=== PATIENT | male | born 1950 | race American Indian/Alaskan Native ===

== ENCOUNTER 2021-07-23 12:26 | Emergency (ER) | payer BC, MEDICARE ==
[2021-07-23 12:30] VITALS: BP 154/51
--- NOTE | 2021-07-23 13:07 | Emergency Department Report ---
ED Extremity Problem HPI - General Chief complaint: Extremity Problem,Nontraumatic Stated complaint: SWOLLEN RIGHT FOOT Time Seen by Provider: 07/23/21 12:51 Source: patient Mode of arrival: Ambulatory Limitations: No Limitations - History of Present Illness Initial comments: 70 year old male with a past medical history of diabetes, hypertension and hype rlipidemia presents to the ER with complaints of pain and swelling to his right foot. Patient states that 3 days ago he was walking around his house barefooted when he suddenly felt something prick to his plantar right foot. he states that he is not exactly sure what pricked him. States that he looked and was unable to see anything but over the past 3 days he has had increasing pain to the plant ar aspect of his foot and redness. He reports no obvious bruising or swelling. He reports increased pain with weightbearing. He reports no additional symptoms at this time. MD Complaint: joint swelling, joint paint -: days(s) (3) - Related Data Home Medications Medication Instructions Recorded Confirmed Last Taken Aspirin EC [Ecotrin] 325 mg PO QDAY 07/02/14 07/02/14 07/01/14 22:00 Valsartan/Hydrochlorothiazide 1 tab PO QDAY 07/02/14 07/02/14 07/01/14 22:00 [Valsartan-Hctz 160-12.5 mg] Previous Rx's Medication Instructions Recorded Last Taken Type Ciprofloxacin HCl 500 mg PO BID #14 tablet 07/23/21 Unknown Rx Ibuprofen [Motrin] 600 mg PO Q8H PRN #30 tablet 07/23/21 Unknown Rx cephALEXin [Keflex] 500 mg PO Q6HR #40 capsule 07/23/21 Unknown Rx Allergies Allergy/AdvReac Type Severity Reaction Status Date / Time No Known Allergies Allergy Verified 07/02/14 06:31 ED Review of Systems ROS: Stated complaint: SWOLLEN RIGHT FOOT Other details as noted in HPI Comment: All other systems reviewed and negative Constitutional: denies: chills, fever Respiratory: denies: cough, shortness of breath, SOB with exertion, SOB at rest, wheezing Cardiovascular: denies: chest pain, palpitations Musculoskeletal: joint swelling, arthralgia Neurological: abnormal gait. denies: headache, weakness, paresthesias Psychiatric: denies: anxiety, depression Hematological/Lymphatic: denies: easy bleeding, easy bruising ED Past Medical Hx - Past Medical History Hx Hypertension: Yes (2009) Hx Diabetes: Yes (type 2) Hx Arthritis: Yes (generalized) Hx HIV: No - Social History Smoking Status: Former Smoker - Medications Home Medications: Home Medications Medication Instructions Recorded Confirmed Last Taken Type Aspirin EC [Ecotrin] 325 mg PO QDAY 07/02/14 07/02/14 07/01/14 22:00 History Valsartan/Hydrochlorothiazide 1 tab PO QDAY 07/02/14 07/02/14 07/01/14 22:00 History [Valsartan-Hctz 160-12.5 mg] Ciprofloxacin HCl 500 mg PO BID #14 tablet 07/23/21 Unknown Rx Ibuprofen [Motrin] 600 mg PO Q8H PRN #30 tablet 07/23/21 Unknown Rx cephALEXin [Keflex] 500 mg PO Q6HR #40 capsule 07/23/21 Unknown Rx ED Physical Exam - General Limitations: No Limitations General appearance: alert, in no apparent distress - Head Head exam: Present: atraumatic, normocephalic, normal inspection - Neck Neck exam: Present: normal inspection, full ROM - Respiratory Respiratory exam: Present: normal lung sounds bilaterally. Absent: respiratory distress, wheezes, rales, rhonchi, stridor - Cardiovascular Cardiovascular Exam: Present: regular rate, normal rhythm, normal heart sounds - Extremities Exam Extremities exam: Present: full ROM, normal capillary refill, other (Mild to moderate swelling noted to the dorsal and distal plantar aspect of right foot with erythema and warmth noted especially to the dorsal aspect of the foot. Patient does have a small callus noted to the distal aspect of the right foot between the third and fourth toe. No fluctuance or indurat) - Neurological Exam Neurological exam: Present: alert, oriented X3, CN II-XII intact, abnormal gait (Mild limping gait) - Psychiatric Psychiatric exam: Present: normal affect, normal mood - Skin Skin exam: Present: intact ED Course Vital Signs 07/23/21 12:29 Temperature 99.1 F Pulse Rate 86 Respiratory 16 Rate Blood Pressure 154/51 [Right] O2 Sat by Pulse 99 Oximetry ED Medical Decision Making - Radiology Data Radiology results: report reviewed Patient: VIVIANA BLAIR MR#: [id number] : 1950 Acct:[id number] Age/Sex: 70 / M ADM Date: 07/23/21 Loc: ED Attending Dr: Ordering Physician: ERICKA FORRESTER Date of Service: 07/23/21 Procedure(s): XR foot 3+V RT Accession Number(s): [id number] cc: ERICKA FORRESTER Fluoro Time In Minutes: RIGHT FOOT 3 VIEW(S) INDICATION / CLINICAL INFORMATION: possible FB/swelling/pain COMPARISON: None available. FINDINGS: BONES / JOINT(S): No acute fracture or subluxation. Mild degenerative change. SOFT TISSUES: No significant abnormality. No radiopaque foreign body ADDITIONAL FINDINGS: None. Signer Name: Greyson Evans MD Signed: 07/23/2021 1:31 PM Workstation Name: [id number] Transcribed By: SB Dictated By: GREYSON EVANS MD Electronically Authenticated By: GREYSON EVANS MD Signed Date/Time: 07/23/211330 DD/ 30 TD/TT: - Medical Decision Making X-ray shows soft tissue swelling but no foreign body or any other acute abnor mality. Physical exam is concerning for possible cellulitis to the his foot but there is no streaking, no significant lymphangitis spreading up into the lower leg. Lower extremities neurovascularly intact. No obvious abscess on exam. He is afebrile, nontoxic and not in any significant distress. Remaining vital signs are stable. Discussed x-ray results with patient. He will be started on Keflex, but also Cipro to cover for Pseudomonas. He was instructed to elevate his leg as often as possible, start taking antibiotics today, and he will be given ibuprofen for pain. I did discuss with patient that if any point his symptoms worsen or he develops fever to return immediately to the ER. Patient expressed understanding for instructions and agree with plan. Patient was stable at time of discharge. Critical care attestation.: If time is entered above; I have spent that time in minutes in the direct care of this critically ill patient, excluding procedure time. ED Disposition Clinical Impression: Cellulitis of foot Disposition: HOME / SELF CARE / HOMELESS Is pt being admited?: No Does the pt Need Aspirin: No Condition: Stable Instructions: Cellulitis, Adult, [id number] Additional Instructions: I recommend taking the keflex and cipro as prescribed. Elevate your foot as often as possible. Take the motrin as prescribed for pain. I recommend close f/u with PCP next week for re-check but return to ED if area is worsening. Prescriptions: Ciprofloxacin HCl 500 mg PO BID #14 tablet cephALEXin [Keflex] 500 mg PO Q6HR #40 capsule Ibuprofen [Motrin] 600 mg PO Q8H PRN #30 tablet PRN Reason: Pain Referrals: PRIMARY CARE, [Primary Care Provider] - 3-5 Days Time of Disposition: 13:45
--- NOTE | 2021-07-23 13:36 | XRay Report ---
RIGHT FOOT 3 VIEW(S) INDICATION / CLINICAL INFORMATION: possible FB/swelling/pain COMPARISON: None available. FINDINGS: BONES / JOINT(S): No acute fracture or subluxation. Mild degenerative change. SOFT TISSUES: No significant abnormality. No radiopaque foreign body ADDITIONAL FINDINGS: None. Signer Name: Greyson Causey MD Signed: 07/23/2021 1:31 PM Workstation Name: [id number]
== END 2021-07-23 13:55 | disposition home or self-care (01) ==
LOC: ED 12:26
DX: L03.115 Cellulitis of right lower limb (principal); I10 Essential (primary) hypertension; E11.9 Type 2 diabetes mellitus without complications; M19.90 Unspecified osteoarthritis, unspecified site; Z87.891 Personal history of nicotine dependence
CPT/HCPCS: 99283